=== PATIENT | male | born 1980 | race American Indian/Alaskan Native ===

== ENCOUNTER 2016-12-03 17:26 | Emergency (ER) | payer MEDICAID ==
[2016-12-03 17:29] VITALS: BMI 20.2
[2016-12-03 17:36] VITALS: BP 118/83; PULSE 74; TEMP 98.3; O2SAT 99
--- NOTE | 2016-12-03 19:37 | ED PDOC ---
Arrival/HPI - General Chief Complaint: ENT Problem Time Seen by Provider: 12/03/16 19:03 Historian: Patient - History of Present Illness Narrative History of Present Illness (Text): 12/03/16 19:43 36-year-old male presents today requesting a rapid strep test. Patient states he has a female partner who was diagnosed with strep recently and he was told that he should be checked for strep. Patient denies sore throat. Denies fevers or chills. Patient denies chest pain or shortness of breath. Denies nasal congestion. Patient continually stating that his girl might have colitis on her feet and only when he walks at her house his feet are itchy. He states she gave him H pylori and he just completed treatment of H. pylori.patient states he's had STD testing performed by his primary care physician and he is going back for retesting within the next few days.Pt states he just wants to make sure he doesnt have strep throat. Past Medical History - Provider Review Nursing Documentation Reviewed: Yes - Travel History Have you recently traveled outside [place] w/in the past 3 mons?: No - Infectious Disease Hx of Infectious Diseases: None - Tetanus Immunization Tetanus Immunization: Unknown - Psychiatric Hx Psychophysiologic Disorder: Yes Hx Bipolar Disorder: Yes Hx Substance Use: No - Surgical History Other/Comment: right thumb, index and ring finger - Anesthesia Hx Anesthesia: Yes Hx Anesthesia Reactions: No Hx Malignant Hyperthermia: No Family/Social History - Physician Review Nursing Documentation Reviewed: Yes Family/Social History: Unknown Family HX Smoking Status: Never Smoked Hx Alcohol Use: No Hx Substance Use: No Allergies/Home Meds Allergies/Adverse Reactions: Allergies Penicillins Adverse Reaction (Verified 12/03/16 17:29) ANAPHYLAXIS Home Medications: Home Meds Medication Instructions Recorded Confirmed No Known Home Med 12/03/16 12/03/16 Review of Systems - Review of Systems Constitutional: absent: Fatigue, Fevers ENT: absent: Sore Throat, Rhinorrhea, Epistaxis, Sinus Congestion Respiratory: absent: SOB, Cough Cardiovascular: absent: Chest Pain, Palpitations Gastrointestinal: absent: Abdominal Pain, Nausea, Vomiting Genitourinary Male: absent: Dysuria Musculoskeletal: absent: Arthralgias Skin: absent: Rash, Pruritis Neurological: absent: Headache, Dizziness Psychiatric: absent: Anxiety, Depression, Suicidal Ideation Physical Exam Vital Signs Reviewed: Yes Vital Signs Temp Pulse Resp BP Pulse Ox 12/03/16 19:39 17 99 12/03/16 17:35 98.3 F 74 18 118/83 99 Temperature: Afebrile Blood Pressure: Normal Pulse: Regular Respiratory Rate: Normal Appearance: Positive for: Well-Appearing, Non-Toxic, Comfortable Pain Distress: None Mental Status: Positive for: Alert and Oriented X 3 - Systems Exam Head: Present: Atraumatic Conjunctiva: Present: Normal Mouth: Present: Moist Mucous Membranes, Normal Lips, Normal Tounge, Normal Teeth. No: Drooling, Trismus Pharnyx: Present: Normal. No: ERYTHEMA, EXUDATE, TONSILS ENLARGED, Peritonsilar Swelling, Uvular Deviation, Muffled/Hoarse Voice, Strider, Soft Palate/Uvular Edema Nose (External): Present: Atraumatic Nose (Internal): Present: Normal Inspection Neck: Present: Normal Range of Motion, Trachea Midline. No: Meningeal Signs Respiratory/Chest: Present: Clear to Auscultation, Good Air Exchange. No: Respiratory Distress, Accessory Muscle Use Cardiovascular: Present: Regular Rate and Rhythm, Normal S1, S2. No: Murmurs Abdomen: No: Tenderness Neurological: Present: GCS=15, Speech Normal Skin: Present: Warm, Dry, Normal Color. No: Rashes Psychiatric: Present: Alert, Oriented x 3 Medical Decision Making ED Course and Treatment: 12/03/16 19:46 pt non toxic well appearing; no distress. denies any complaints. requesting rapid strep test. rapid strep test negative pt was advised to f/u with pmd and ENT specialist. advised immediate return if symptoms worsen,persist or if new symptoms develop. Patient verbalizes understanding of discharge instructions and need for immediate followup. impression; well adult examination Follow up with the ENT specialist follow up with the primary care physician within the next 2 days return immediately if symptoms worsen,persist or if new symptoms develop. - Lab Interpretations Lab Results: Lab Results 12/03/16 19:04: Grp A Beta Strep Ag Negative Disposition/Present on Arrival - Present on Arrival Any Indicators Present on Arrival: No History of DVT/PE: No History of Uncontrolled Diabetes: No Urinary Catheter: No History of Decub. Ulcer: No History Surgical Site Infection Following: None - Disposition Have Diagnosis and Disposition been Completed?: Yes Diagnosis: Well adult exam Disposition: HOME/ ROUTINE Disposition Time: 19:00 Patient Plan: Discharge Condition: GOOD Additional Instructions: Follow up with the ENT specialist follow up with the primary care physician within the next 2 days return immediately if symptoms worsen,persist or if new symptoms develop. Referrals: Daisha Lynch, [Primary Care Provider] - Follow up with primary Eugenio Davis Jr., MD [Medical Doctor] - Follow up with primary Rodolfo Mccormick DO [Doctor Osteopathy] - Follow up with primary Forms: [employer] ([place]ian), WORK NOTE
[2016-12-03 19:40] VITALS: RESP 17
== END 2016-12-03 19:40 | disposition home or self-care (01) ==
LOC: ED 17:26
DX: Z00.00 Encounter for general adult medical examination without abnormal findings (principal)